=== PATIENT | male | born 1950 | race Caucasian/White ===

== ENCOUNTER → 2017-02-25 | Outpatient (CLI) | payer OTHER ==
[~2017-02-25] MED LIST: CHOL400T PO; LORA-741 PO; PRAV20TA PO; SERT1TAB68 PO
== END | disposition home or self-care (01) ==
LOC: C.LABSPEC 11:18
PROVIDERS: ATTEND Urology
DX: C68.9 Malignant neoplasm of urinary organ, unspecified (principal)

== ENCOUNTER → 2017-03-03 | Outpatient (CLI) | payer OTHER ==
[~2017-03-03] MED LIST changes: +OPTIRAY 300 IV PRN
[2017-03-03 13:50] LABS: BLOOD UREA NITROGEN 15 mg/dl (7-18); CREATININE 0.87 mg/dl (0.60-1.40); GLUCOSE 101 mg/dl (70-99)
[2017-03-03 13:51] LABS: ALBUMIN 4.2 gm/dl (3.4-5.0); ALT/SGPT 25 U/L (12-78); CALCIUM 9.6 mg/dl (8.5-10.1); CARBON DIOXIDE 27 mmol/L (21-32); CHOLESTEROL 182 mg/dl (0-200); POTASSIUM 4.3 mmol/L (3.5-5.1); SODIUM 137 mmol/L (136-145)
[2017-03-03 13:58] LABS: ALKALINE PHOSPHATASE 84 U/L (45-117); AST/SGOT 18 U/L (15-37); LDL CHOLESTEROL CALCULATED 110 mg/dl; TOTAL PROTEIN 7.2 gm/dl (6.4-8.2)
--- NOTE | 2017-03-03 14:54 | DIAGNOSTIC IMAGING REPORT ---
IVP W/OR W/O TOMOGRAMS HISTORY: 66 years-old Male C68.9 Transitional cell [id number] COMPARISON: CT abdomen pelvis 09/09/2015 obtained from outside facility. Images only. The report not available at time of dictation. TECHNIQUE: IVP with tomographic images was obtained with a broacher radiograph and postcontrast images. 100 mL Optiray 300 was administered. FINDINGS: Complex Director image demonstrates no ureteral or renal calculi. Calcifications of the pelvis suggest phleboliths. Mild to moderate stool volume of the transverse colon. Mild degenerative changes of the lower lumbar spine. There is prompt and symmetric opacification of the bilateral kidneys with the left renal shadow obscured by bowel gas. There is normal excretion of contrast into the right renal collecting system, right renal pelvis and right ureter without focal filling defect or evidence of hydronephrosis. There is moderate dilation of the left renal pelvis, central and peripheral calyces which appears similar to the study dated 09/09/2015 without significant change. There is delayed excretion into the left ureter without significant left ureteral opacification identified throughout the study. These findings also appear unchanged from prior study. No definite filling defects within the left renal collecting system identified. Mild post void residual within the urinary bladder. IMPRESSION: 1. Moderate dilation of the left renal collecting system and left ureter with no significant contrast excretion past the level of the left ureteropelvic junction appears generally unchanged from comparison study 09/09/2015 suspicious for chronic UPJ obstruction. 2. Normal appearance of the right kidney. 3. No focal collecting system filling defects identified. 4. No renal or ureteral calculi. 5. Mild post void residual. The above report was generated using voice recognition software. It may contain grammatical, syntax or spelling errors. Electronically signed by: Juan Barry M.D. 03/03/2017 2:53 PM Dictated Date/Time: 03/03/2017 2:46 PM
== END | disposition home or self-care (01) ==
LOC: C.RAD 12:02
PROVIDERS: ATTEND Urology
DX: C68.9 Malignant neoplasm of urinary organ, unspecified (principal)